=== PATIENT | female | born 1985 | race Hispanic/Latino ===

== ENCOUNTER 2017-04-04 23:14 | Emergency (ER) | payer BC ==
[~2017-04-04] VITALS: Ht 154.9 cm; Wt 54.6 kg
[~2017-04-04 23:14] MED LIST: CIPRO500 MG PO; MACRODANTIN100 MG PO
[2017-04-05 03:17] LABS: ADD MIUA? YES; BILIRUBIN NEGATIVE; BLOOD NEGATIVE; COLOR YELLOW ((YELLOW)); GLUCOSE (STRIP) NEGATIVE; KETONES NEGATIVE; LEUKOCYTES MODERATE; NITRITE NEGATIVE; PROTEIN (STRIP) NEGATIVE; SPECIFIC GRAVITY 1.012 (1.000-1.030); UROBILINOGEN 0.2 MG/DL (0.2-1.0)
[2017-04-05 03:23] LABS: BACTERIA RARE /HPF; EPITHELIAL CELLS 2+ /HPF; MUCUS TRACE /LPF; RED BLOOD CELLS 0-5 /HPF (0-5); UCUL ADDED? NO
[2017-04-05 03:28] LABS: HEMATOCRIT 39.4 % (36.0-46.0); MCH 29.3 PG (29.0-34.0); MCHC 32.7 G/DL (30.0-36.0); MCV 89.5 FL (83-99); MEAN PLAT.VOLUME 9.7 uM^3 (9.5-12.4); PLATELET COUNT 357 K/uL (156-360); RBC DIS.WIDTH-CV 12.2 % (11.8-14.6); RBC DIS.WIDTH-SD 40.4 % (39-53); WHITE BLOOD COUNT 6.3 K/uL (4.1-10.2)
[2017-04-05 03:41] LABS: CHLORIDE 108 mEq/L (99-109); POTASSIUM 3.9 mEq/L (3.7-5.4); SODIUM 138 mEq/L (136-147)
[2017-04-05 03:44] LABS: GLUCOSE 102 mg/dL (70-99)
[2017-04-05 03:45] LABS: ANION GAP 7 MEQ/L (2-14)
[2017-04-05 03:46] LABS: TOTAL BILIRUBIN 0.4 mg/dL (0.0-1.0)
[2017-04-05 03:47] LABS: ALKALINE PHOSPHATASE 80 IU/L (3-129); GFR ESTIMATE (CALCULATED) > 59 mL/min/
[2017-04-05 03:49] LABS: UREA NITROGEN (BUN) 13 mg/dL (9-23)
[2017-04-05 03:56] LABS: QUANTITATIVE HCG < 4.0 MIU/ML
[2017-04-05] MEDS ORDERED: NORCO 5/3251 TABLET PO (05:46)
[2017-04-05] MEDS ORDERED: ZOFRAN ODT4 MG PO (05:46)
[2017-04-05 06:24] VITALS: BP 93/50
[2017-04-06] MEDS ORDERED: LEVAQUIN750 MG PO (14:09)
== END 2017-04-05 06:28 | disposition home or self-care (01) ==
LOC: EME 23:14
DX: N30.90 Cystitis, unspecified without hematuria (principal); K80.20 Calculus of gallbladder without cholecystitis without obstruction; R00.0 Tachycardia, unspecified
CPT/HCPCS: 74176; 80053; 81003; 84702; 85027; 87086; 99281; 99285; J0696; J1885; J3010; J7030; J7050